=== PATIENT | female | born 1935 | race Hispanic/Latino ===

== ENCOUNTER 2017-08-26 10:08 | Inpatient (IN) | payer MEDICARE ==
[~2017-08-26] VITALS: Ht 157.5 cm; Wt 64.7 kg
[2017-08-26] VITALS (9 sets, daily range): BP systolic 80–159; BP diastolic 53–83
[~2017-08-26 10:08] MED LIST: ALEN70TA47 PO; CYAN500T46 PO; GABA-529 PO; GEMF600T3 PO; INSU100V12 SQ; ISOS30TA6 PO; LISI10TA7 PO; METO-408 PO; NITR0.4T SL; SITA50TA PO; SOLI5 PO
[2017-08-26] MEDS ORDERED: SODIUM CHLORIDE 0.9% 500ML 500 ML IV ONE ×2 (10:30→11:37)
[2017-08-26 11:13] LABS: BASOPHILS % (AUTO) 0.5 % (0.0-5.0); EOSINOPHILS % (AUTO) 8.5 % (0.0-8.0); LYMPHOCYTES % (AUTO) 22.8 % (21.0-51.0); MEAN CORPUSCULAR HEMOGLOBIN 29.6 pg (27.0-33.0); MEAN CORPUSCULAR HGB CONC 34.5 g/dL (32.0-36.0); MEAN CORPUSCULAR VOLUME 85.8 fL (79-99); MONOCYTES % (AUTO) 9.1 % (3.0-13.0); NEUTROPHILS % (AUTO) 59.1 % (40.0-77.0); PLATELET COUNT (AUTO) 254 K/uL (130-400); RED CELL DISTRIBUTION WIDTH 14.3 % (11.0-15.5); WHITE BLOOD COUNT (AUTO) 5.5 K/uL (4.8-10.8)
[2017-08-26 11:15] LABS: CREATININE 1.2 mg/dL (0.5-1.5); POTASSIUM 4.9 mmol/L (3.5-5.1)
[2017-08-26 11:28] LABS: ALBUMIN 2.5 g/dL (3.5-5.0); BILIRUBIN,TOTAL 0.2 mg/dL (0.2-1.0); TOTAL PROTEIN, SERUM 6.5 g/dL (6.0-8.3)
[2017-08-26] MEDS ORDERED: PHENYLEPHRINE HCL 10 MG/ML 1ML VIAL IV ONE ×4 (12:20→19:39)
[2017-08-26] MEDS ORDERED: SODIUM CHLORIDE 0.9% 250 ML IV ONE ×2 (12:22→19:40)
[2017-08-26 13:03] LABS: INR 1.02 (0.85-1.15); PARTIAL THROMBOPLASTIN TIME 31.7 SEC (26.3-35.5); PROTHROMBIN TIME 10.7 SEC (9.6-11.6)
[2017-08-26] MEDS ORDERED: IOPAMIDOL-370 100 ML VIAL IV ONE (13:45)
[2017-08-26] MEDS ORDERED: IOPAMIDOL-370 75 ML VIAL IV ONE (14:03)
[2017-08-26] MEDS ORDERED: MEROPENEM 1 GM VIAL ONE (16:43)
[2017-08-26] MEDS ORDERED: ENOXAPARIN SODIUM 40 MG/0.4 ML SYRINGE SQ ONE (16:44)
[2017-08-26] MEDS ORDERED: ASPIRIN 81MG TAB.CHEW ONE (16:44)
[2017-08-26 17:29] LABS: APPEARANCE,URINE Clear (CLEAR); BILIRUBIN,URINE Negative (NEGATIVE); COLOR,URINE Yellow (YELLOW); GLUCOSE, URINE (UA) Negative (NEGATIVE); KETONES,URINE Negative (NEGATIVE); LEUKOCYTE ESTERASE ,URINE Negative (NEGATIVE); NITRATE,URINE Negative (NEGATIVE); OCCULT BLOOD,URINE Moderate (NEGATIVE); PH,URINE 6.5 (5.0-8.0); PROTEIN,URINE Trace (NEGATIVE); UROBILINOGEN,URINE 0.2 mg/dL (0.2-1.0)
[2017-08-26] MEDS ORDERED: VANCOMYCIN 1GM+NS 250ML 250 ML IV ONE (17:36)
[2017-08-26] MEDS ORDERED: SODIUM CHLORIDE 0.9% 1000ML 1,000 ML IV ONE (17:36)
[2017-08-26] MEDS ORDERED: PANTOPRAZOLE SODIUM 40 MG TABLET.DR PO ONE (17:38)
[2017-08-26 17:53] LABS: RBC,URINE 51-100 /HPF (0-1)
[2017-08-26 17:54] LABS: BACTERIA,URINE Rare /HPF (None Seen); SQUAMOUS EPITHELIAL CELL,UR 0-2 /HPF (0-2)
[2017-08-26] MEDS ORDERED: VANCOMYCIN PROTOCOL PER PHARMACY IV SCH (19:00)
[2017-08-26] MEDS ORDERED: IPRATROPIUM/ALBUTEROL SULFATE 3 ML SOLUTION IH PRN (19:15)
[2017-08-26] MEDS ORDERED: SODIUM CHLORIDE 0.9% 500ML 500 ML IV PRN (19:15)
[2017-08-26] MEDS ORDERED: ONDANSETRON HCL 4 MG/2 ML VIAL IVP PRN (19:15)
[2017-08-26] MEDS ORDERED: MORPHINE SULFATE 4 MG/1ML SYG IVP PRN (19:15)
[2017-08-26] MEDS ORDERED: MEROPENEM 1GM IVPB PREMIXED 1 GM IV SCH (19:45)
[2017-08-26] MEDS: SODIUM CHLORIDE 0.9% 1000ML 1,000 ML IV SCH (20:23)
[2017-08-26] MEDS ORDERED: DEXTROSE 50%-WATER 50 ML DISP.SYRIN IV PRN (20:45)
[2017-08-26] MEDS ORDERED: GLUCAGON 1MG KIT 1 MG ML IM PRN (20:45)
[2017-08-26] MEDS: INSULIN R PO SS1 SQ SCH (21:00)
[2017-08-26] MEDS: ACETAMINOPHEN 325 MG TAB PO PRN (21:04)
[2017-08-26] MEDS ORDERED: COMPOUND IV REFRIGERATED 1 EACH IVSOLN MISC PRN (21:45)
[2017-08-26 21:59] LABS: HEMATOCRIT 25.5 % (36-48)
[2017-08-26 22:28] LABS: CREATINE KINASE MB 0.9 ng/mL (0.5-3.6); TROPONIN I 0.06 ng/mL (0.00-0.06)
[2017-08-26] MEDS: PHENYLEPHRINE HCL 50 MG in SODIUM CHLORIDE 0.9% 250 ML IV SCH (23:09)
[2017-08-27] VITALS (35 sets, daily range): BP systolic 80–194; BP diastolic 29–87
[2017-08-27 04:04] LABS: HEMATOCRIT 28.3 % (36-48); MEAN CORPUSCULAR HEMOGLOBIN 29.1 pg (27.0-33.0); MEAN CORPUSCULAR HGB CONC 34.2 g/dL (32.0-36.0); MEAN CORPUSCULAR VOLUME 85.1 fL (79-99); PLATELET COUNT (AUTO) 341 K/uL (130-400); RED BLOOD CELL COUNT(AUTO) 3.32 MIL/uL (4.00-5.50); RED CELL DISTRIBUTION WIDTH 14.7 % (11.0-15.5); WHITE BLOOD COUNT (AUTO) 9.6 K/uL (4.8-10.8)
[2017-08-27 04:22] LABS: CREATINE KINASE MB 0.8 ng/mL (0.5-3.6); CREATININE 0.8 mg/dL (0.5-1.5); POTASSIUM 4.3 mmol/L (3.5-5.1); TROPONIN I 0.07 ng/mL (0.00-0.06)
[2017-08-27] MEDS: MEROPENEM 1 GM VIAL IVP SCH ×2 (05:44→15:17)
[2017-08-27] MEDS: INSULIN R PO SS1 SQ SCH ×4 (05:52→20:17)
[2017-08-27] MEDS: VANCOMYCIN 0.75 GM in SODIUM CHLORIDE 0.9% 250 ML IV SCH (05:52)
[2017-08-27] MEDS: PHENYLEPHRINE HCL 50 MG in SODIUM CHLORIDE 0.9% 250 ML IV SCH ×2 (08:06→19:58)
[2017-08-27] MEDS: SODIUM CHLORIDE 0.9% 1000ML 1,000 ML IV SCH ×2 (09:33→23:19)
[2017-08-27 09:51] LABS: TROPONIN I 0.07 ng/mL (0.00-0.06)
[2017-08-27] MEDS: ENOXAPARIN SODIUM 40 MG/0.4 ML SYRINGE SQ SCH (15:37)
[2017-08-27] MEDS: ASPIRIN 81MG TAB.CHEW PO SCH (15:37)
[2017-08-27] MEDS: PANTOPRAZOLE SODIUM 40 MG TABLET.DR PO SCH (15:41)
[2017-08-28] VITALS (25 sets, daily range): BP systolic 94–188; BP diastolic 47–82
[2017-08-28] MEDS: MEROPENEM 1 GM VIAL IVP SCH ×2 (03:15→15:46)
[2017-08-28 03:41] LABS: HEMATOCRIT 28.3 % (36-48); MEAN CORPUSCULAR HEMOGLOBIN 29.5 pg (27.0-33.0); MEAN CORPUSCULAR HGB CONC 35.1 g/dL (32.0-36.0); MEAN CORPUSCULAR VOLUME 84.1 fL (79-99); PLATELET COUNT (AUTO) 384 K/uL (130-400); RED BLOOD CELL COUNT(AUTO) 3.36 MIL/uL (4.00-5.50); RED CELL DISTRIBUTION WIDTH 14.2 % (11.0-15.5); WHITE BLOOD COUNT (AUTO) 9.2 K/uL (4.8-10.8)
[2017-08-28 03:45] LABS: CREATININE 0.7 mg/dL (0.5-1.5); POTASSIUM 3.8 mmol/L (3.5-5.1)
[2017-08-28 03:46] LABS: INR 1.05 (0.85-1.15); PARTIAL THROMBOPLASTIN TIME 31.8 SEC (26.3-35.5)
[2017-08-28] MEDS: VANCOMYCIN 0.75 GM in SODIUM CHLORIDE 0.9% 250 ML IV SCH (05:05)
[2017-08-28] MEDS: INSULIN R PO SS1 SQ SCH ×4 (06:18→20:06)
[2017-08-28] MEDS: PHENYLEPHRINE HCL 50 MG in SODIUM CHLORIDE 0.9% 250 ML IV SCH (09:15)
[2017-08-28] MEDS: ASPIRIN 81MG TAB.CHEW PO SCH (09:17)
[2017-08-28] MEDS: PANTOPRAZOLE SODIUM 40 MG TABLET.DR PO SCH (09:17)
[2017-08-28] MEDS: ENOXAPARIN SODIUM 40 MG/0.4 ML SYRINGE SQ SCH (09:18)
[2017-08-28] MEDS: ACETAMINOPHEN 325 MG TAB PO PRN ×2 (13:31→20:03)
[2017-08-29] VITALS (7 sets, daily range): BP systolic 130–199; BP diastolic 53–84
[2017-08-29] MEDS: INSULIN R PO SS1 SQ SCH ×4 (06:41→21:44)
[2017-08-29] MEDS: PANTOPRAZOLE SODIUM 40 MG TABLET.DR PO SCH (08:26)
[2017-08-29] MEDS: ASPIRIN 81MG TAB.CHEW PO SCH (08:26)
[2017-08-29] MEDS: ACETAMINOPHEN 325 MG TAB PO PRN (21:50)
[2017-08-29] MEDS: METOPROLOL TARTRATE 25 MG TAB PO SCH (22:44)
[2017-08-30 03:00] VITALS: BP 174/73
[2017-08-30] MEDS: INSULIN R PO SS1 SQ SCH ×3 (06:13→17:11)
[2017-08-30 08:00] VITALS: BP 94/60
[2017-08-30] MEDS: METOPROLOL TARTRATE 25 MG TAB PO SCH (09:00)
[2017-08-30] MEDS: ASPIRIN 81MG TAB.CHEW PO SCH (09:22)
[2017-08-30] MEDS: PANTOPRAZOLE SODIUM 40 MG TABLET.DR PO SCH (09:22)
[2017-08-30 11:00] VITALS: BP 106/65
[2017-08-30] MEDS ORDERED: CLOP75TA14 PO (14:51)
[2017-08-30] MEDS ORDERED: NOVOLIN SQ (14:51)
[2017-08-30] MEDS ORDERED: ASCO500C6 PO (14:51)
[2017-08-30] MEDS ORDERED: ALEN70TA47 PO (14:51)
[2017-08-30] MEDS ORDERED: FOLI0.8T22 PO (14:51)
[2017-08-30] MEDS ORDERED: GABA-533 PO (14:51)
[2017-08-30] MEDS ORDERED: METO-391 PO (14:51)
[2017-08-30] MEDS ORDERED: SAXA2.5T PO (14:51)
[2017-08-30] MEDS ORDERED: DOCU-116 PO (14:51)
[2017-08-30] MEDS ORDERED: PANT40TA PO (14:51)
[2017-08-30] MEDS ORDERED: ERGO400T7 PO (14:51)
[2017-08-30] MEDS ORDERED: GEMF600T3 PO (14:51)
[2017-08-30] MEDS ORDERED: LISI-613 PO (14:51)
[2017-08-30] MEDS ORDERED: LACT10SO9 PO (14:51)
[2017-08-30] MEDS ORDERED: ASPI-555 PO (14:51)
[2017-08-30] MEDS ORDERED: ACET325C5 PO (14:51)
[2017-08-30 16:00] VITALS: BP 127/76
== END 2017-08-30 18:07 | disposition home or self-care (01) | DRG 871 ==
LOC: EDH 10:08 → EDHIP 16:20 → 2CH 18:24 → 3BH 08-28 17:02
PROVIDERS: ADMIT Internal Medicine Infectious Disease; ATTEND Internal Medicine Infectious Disease
DX: A41.9 Sepsis, unspecified organism (principal); R65.21 Severe sepsis with septic shock; J96.90 Respiratory failure, unspecified, unspecified whether with hypoxia or hypercapnia; L03.115 Cellulitis of right lower limb; E11.52 Type 2 diabetes mellitus with diabetic peripheral angiopathy with gangrene; M86.8X7 Other osteomyelitis, ankle and foot; E87.1 Hypo-osmolality and hyponatremia; E44.1 Mild protein-calorie malnutrition; E78.5 Hyperlipidemia, unspecified; E11.621 Type 2 diabetes mellitus with foot ulcer; I50.9 Heart failure, unspecified; Z66 Do not resuscitate; Z16.24 Resistance to multiple antibiotics; Z87.891 Personal history of nicotine dependence; Z89.411 Acquired absence of right great toe; Z83.3 Family history of diabetes mellitus; I11.0 Hypertensive heart disease with heart failure; E11.69 Type 2 diabetes mellitus with other specified complication; I25.10 Atherosclerotic heart disease of native coronary artery without angina pectoris; L97.529 Non-pressure chronic ulcer of other part of left foot with unspecified severity; M19.90 Unspecified osteoarthritis, unspecified site; R53.81 Other malaise; J84.10 Pulmonary fibrosis, unspecified; Z68.26 Body mass index [BMI] 26.0-26.9, adult; E66.9 Obesity, unspecified
CPT/HCPCS: 36415; 71045; 71275; 73600; 80048; 80053; 80202; 81001; 82550; 82553; 82948; 83605; 83874; 84484; 85014; 85018; 85025; 85027; 85378; 85610; 85730; 87040; 87070; 87076; 87106; 93005; 93970; 94664; 99291; A4218; A6453; C1751; C1894; J1650; J1815; J2185; J2270; J2370; J3370; J7030; J7040; Q9967

== ENCOUNTER → 2018-06-21 | Outpatient (CLI) | payer MEDICARE ==
[~2018-06-21] MED LIST changes: +ACET325C5 PO; +ALEN70TA10 PO; -ALEN70TA47 PO; +ASCO500C6 PO; +ASPI-555 PO; +CLOP75TA14 PO; -CYAN500T46 PO; +DOCU-116 PO; +ERGO400T7 PO; +FOLI0.8T22 PO; -GABA-529 PO; +GABA-533 PO; -GEMF600T3 PO; +GEMF600T5 PO; -INSU100V12 SQ; -ISOS30TA6 PO; +LACT10SO9 PO; +LISI-613 PO; -LISI10TA7 PO; +METO-391 PO; -METO-408 PO; -NITR0.4T SL; +NOVOLIN SQ; +PANT40TA PO; +SAXA2.5T PO; -SITA50TA PO; -SOLI5 PO
== END | disposition home or self-care (01) ==
LOC: RAH 08:41
PROVIDERS: ATTEND Internal Medicine Gastroenterology
DX: K22.8 Other specified diseases of esophagus (principal)
CPT/HCPCS: 74240

== ENCOUNTER → 2018-09-19 | Outpatient (CLI) | payer MEDICARE | END | disposition home or self-care (01) | LOC: RAH 10:37 | PROVIDERS: ATTEND Internal Medicine Gastroenterology | DX: R14.0 Abdominal distension (gaseous) (principal); K21.9 Gastro-esophageal reflux disease without esophagitis | CPT/HCPCS: 78264; A9541 ==

== ENCOUNTER → 2018-09-27 | Outpatient (CLI) | payer MEDICARE ==
--- NOTE | 2018-09-27 13:03 | NUR ---
MBSS COMPLETED. -S/S OF ASPIRATION. RECOMMEND MECHANICAL SOFT/CHOPPED, THIN LIQUIDS; PILLS WHOLE WITH LIQUIDS; OK TO ADVANCE TO REGULAR SOLIDS WHEN DENTURES ARE IN PLACE. Addendum: 09/27/18 at 1305 by NAVEED HADDAD, [facility] Amended: Links added.
== END | disposition home or self-care (01) ==
LOC: RAH 11:15
PROVIDERS: ATTEND Internal Medicine Gastroenterology
DX: R13.12 Dysphagia, oropharyngeal phase (principal); R63.3 Feeding difficulties; E11.9 Type 2 diabetes mellitus without complications
CPT/HCPCS: 74230; 92611